=== PATIENT | female | born 1955 | race Caucasian/White ===

== ENCOUNTER 2018-10-22 11:55 | Emergency (ER) | payer OTHER ==
[2018-10-22] MEDS ORDERED: DIAZEPAM 5 MG TABLET ONE (12:34)
[2018-10-22] MEDS ORDERED: HYDROCODONE/APAP 5/325 MG TAB ONE (12:34)
[2018-10-22] MEDS ORDERED: ONDANSETRON 4 MG (ODT) TAB ONE (12:38)
--- NOTE | 2018-10-22 13:12 | RAD REPORT ---
EXAM DESCRIPTION: French Single View10/22/2018 1:07 pm CLINICAL HISTORY: Chest pain COMPARISON: none FINDINGS: The lungs appear clear of acute infiltrate. The heart is normal size IMPRESSION: No acute abnormalities displayed
--- NOTE | 2018-10-22 13:13 | RAD REPORT ---
EXAM DESCRIPTION: RAD - Shoulder Right 2 View - 10/22/2018 1:07 pm CLINICAL HISTORY: Right shoulder pain FINDINGS: No fracture or dislocation is seen. Mild osteoarthritis involves the AC joint mainly consisting of joint space narrowing and small osteop hytes.
--- NOTE | 2018-10-22 13:13 | RAD REPORT ---
EXAM DESCRIPTION: RAD - C Spine Ap/Lat - 10/22/2018 1:07 pm CLINICAL HISTORY: Neck pain FINDINGS: Mild posterior subluxation of C5 on C6 is present. Osteophytes and disc space narrowing ar e present. There is loss of normal lordosis at this level. No fracture or dislocation is seen.
--- NOTE | 2018-10-22 13:57 | ER ---
Nurse's Notes [facility] Name: Brissa Potetr Age: 63 yrs Sex: Female : 1955 Arrival Date: 10/22/2018 Time: 11:58 Bed 14 Private MD: out of town, doctor Diagnosis: Muscle spasm of back Presentation: 10/22 12:03 Presenting complaint: Patient states: yesterday morning i started having right scapula tw2 shoulder back pain and now i can hardly move it. Transition of care: patient was not received from another setting of care. Onset of symptoms was October 22, 2018. Risk Assessment: Do you want to hurt yourself or someone else? Patient reports no desire to harm self or others. Initial Sepsis Screen: Does the patient meet any 2 criteria? No. Patient's initial sepsis screen is negative. Does the patient have a suspected source of infection? No. Patient's initial sepsis screen is negative. Care prior to arrival: None. 12:03 Method Of Arrival: Ambulatory tw2 12:03 Acuity: JOSE R 4 tw2 Triage Assessment: 12:06 General: Appears in no apparent distress. well groomed, Behavior is calm, cooperative, tw2 appropriate for age. Pain: Complains of pain in my right scapula. Historical: - Allergies: 12:06 No Known Allergies; tw2 - Home Meds: 12:06 estrodol [Active]; tw2 - PSHx: 12:06 Cholecystectomy; prolapsed uterus, rectum, bladder; Hysterectomy; tw2 - Immunization history:: Adult Immunizations. - Social history:: Smoking status: . - Ebola Screening: : Patient denies travel to an Ebola-affected area in the 21 days before illness onset. Screenin:15 Abuse screen: Denies threats or abuse. Denies injuries from another. Nutritional bp screening: No deficits noted. Tuberculosis screening: No symptoms or risk factors identified. Fall Risk None identified. Assessment: 12:15 General: Appears in no apparent distress. uncomfortable, Behavior is cooperative, bp appropriate for age, anxious. Pain: Complains of pain in anterior aspect of right shoulder. Neuro: Level of Consciousness is awake, alert, obeys commands, Oriented to person, place, time, situation, Appropriate for age. Cardiovascular: No deficits noted. Respiratory: No deficits noted. GI: No signs and/or symptoms were reported involving the gastrointestinal system. : No signs and/or symptoms were reported regarding the genitourinary system. EENT: No deficits noted. Derm: No deficits noted. Musculoskeletal: Circulation, motion, and sensation intact. Range of motion: limited in right shoulder. 14:15 Reassessment: PT D/C HOME AMBULATORY, DX WITH MUSCLE SPASM. bp Vital Signs: 12:04 BP 139 / 73; Pulse 82; Resp 17; Temp 98.7(TE); Pulse Ox 100% on R/A; Weight 70.31 kg tw2 (R); Height 5 ft. 8 in. (172.72 cm); Pain 7/10; 14:15 BP 141 / 75; Pulse 81; Resp 16; Pulse Ox 99% ; bp 12:04 Body Mass Index 23.57 (70.31 kg, 172.72 cm) tw2 12:04 if i move its a 06/11 tw2 ED Course: 11:58 Patient arrived in ED. mr 11:58 out of town, doctor is Private Physician. mr 12:04 Triage completed. tw2 12:04 Arm band placed on. tw2 12:07 Larry Reinoso PA is PHCP. jmm 12:07 French Guadalupe MD is Attending Physician. jmm 12:08 Leroy Rashid, JUSTYNA is Primary Nurse. bp 12:15 Patient has correct armband on for positive identification. Bed in low position. Call bp light in reach. Side rails up X2. Adult w/ patient. 12:35 Patient moved to radiology via wheelchair. jb2 13:06 X-ray completed. Patient tolerated procedure well. Patient moved back from radiology. jb2 13:08 Shoulder Right (2 View) XRAY In Process Unspecified. EDMS 13:08 XRAY C Spine Ap/lat In Process Unspecified. EDMS 13:08 Chest Single View XRAY In Process Unspecified. EDMS 14:15 No provider procedures requiring assistance completed. Patient did not have IV access bp during this emergency room visit. Administered Medications: 12:25 Drug: Beverly 5 mg-325 mg 1 tabs Route: PO; jl7 14:16 Follow up: Response: Pain is decreased bp 12:26 Drug: Valium 5 mg Route: PO; jl7 14:17 Follow up: Response: Pain is decreased bp 12:28 Drug: Zofran 4 mg Route: PO; jl7 14:17 Follow up: Response: No adverse reaction; Nausea is decreased bp Outcome: 13:57 Discharge ordered by MD. ward 14:16 Discharged to home ambulatory, with family. bp 14:16 Condition: stable 14:16 Discharge instructions given to patient, Instructed on discharge instructions, follow up and referral plans. medication usage, Demonstrated understanding of instructions, follow-up care, medications, Prescriptions given X 2. 14:17 Patient left the ED. bp Signatures: Dispatcher [employer] EDMS Larry Reinoso PA PA jmm Rivera, Mary mr Bagley, Nathan jb2 Juli Brady RN RN tw2 Helen Valencia RN RN jl7 Leroy Rashid RN RN bp
--- NOTE | 2018-10-22 13:58 | EDPHYS ---
Physician Documentation [facility] Name: Brissa Potter Age: 63 yrs Sex: Female : 1955 Arrival Date: 10/22/2018 Time: 11:58 Bed 14 Private MD: out of town, doctor ED Physician French Guadalupe HPI: 10/22 12:18 This 63 yrs old Female presents to ER via Ambulatory with complaints of jmm Shoulder Pain. 12:18 The patient or guardian complains of pain, that is acute. Onset: The symptoms/episode jmm began/occurred acutely, yesterday. Associated signs and symptoms: Pertinent positives:. This is a 63 year old female that presents to the ED with complaints of right scapular pain beginning yesterday. pain is relieved with remaining still, worsened by movement of the right arm. patient denies chest pain or shortness of breath. . Historical: - Allergies: 12:06 No Known Allergies; tw2 - Home Meds: 12:06 estrodol [Active]; tw2 - PSHx: 12:06 Cholecystectomy; prolapsed uterus, rectum, bladder; Hysterectomy; tw2 - Immunization history:: Adult Immunizations. - Social history:: Smoking status: . - Ebola Screening: : Patient denies travel to an Ebola-affected area in the 21 days before illness onset. ROS: 12:18 Constitutional: Negative for fever, chills, and weight loss, Cardiovascular: Negative jmm for chest pain, palpitations, and edema, Respiratory: Negative for shortness of breath, cough, wheezing, and pleuritic chest pain. 12:18 Back: Positive for pain with movement. 12:18 MS/extremity: Positive for pain. 12:18 All other systems are negative. Exam: 12:18 Constitutional: This is a well developed, well nourished patient who is awake, alert, jmm and in no acute distress. Head/Face: atraumatic. Eyes: EOMI, no conjunctival erythema appreciated ENT: Moist Mucus Membranes Neck: Trachea midline, Supple Chest/axilla: Normal chest wall appearance and motion. Cardiovascular: Regular rate and rhythm. No edema appreciated Respiratory: Normal respirations, no respiratory distress appreciated 12:18 Musculoskeletal/extremity: pain is exacerbated on movement of the right arm, full radial pulse is appreciated, full auto travel counselor strength, compartments are soft, NVI. 12:18 Skin: Appearance: Color: normal in color. 12:18 Neuro: Orientation: is normal, Mentation: is normal, Memory: is normal. 12:18 Psych: Behavior/mood is pleasant, cooperative. Vital Signs: 12:04 BP 139 / 73; Pulse 82; Resp 17; Temp 98.7(TE); Pulse Ox 100% on R/A; Weight 70.31 kg tw2 (R); Height 5 ft. 8 in. (172.72 cm); Pain 7/10; 14:15 BP 141 / 75; Pulse 81; Resp 16; Pulse Ox 99% ; bp 12:04 Body Mass Index 23.57 (70.31 kg, 172.72 cm) tw2 12:04 if i move its a 06/11 tw2 MDM: 12:18 Patient medically screened. [facility] 13:55 Data reviewed: vital signs, nurses notes, lab test result(s), radiologic studies, plain [facility] films. Counseling: I had a detailed discussion with the patient and/or guardian regarding: the historical points, exam findings, and any diagnostic results supporting the discharge/admit diagnosis, radiology results, the need for outpatient follow up, to return to the emergency department if symptoms worsen or persist or if there are any questions or concerns that arise at home. ED course: Patient states that she feels much better. ROM has improved. Patient advised to follow up with orthopedics. Patient otherwise given strict return precautions. . 10/22 12:20 Order name: Shoulder Right (2 View) XRAY; Complete Time: 13:15 [facility] 10/22 12:20 Order name: Chest Single View XRAY; Complete Time: 13:15 [facility] 10/22 12:20 Order name: XRAY C Spine Ap/lat; Complete Time: 13:15 [facility] Administered Medications: 12:25 Drug: [place]field 5 mg-325 mg 1 tabs Route: PO; jl7 14:16 Follow up: Response: Pain is decreased bp 12:26 Drug: Valium 5 mg Route: PO; jl7 14:17 Follow up: Response: Pain is decreased bp 12:28 Drug: Zofran 4 mg Route: PO; jl7 14:17 Follow up: Response: No adverse reaction; Nausea is decreased bp Disposition: 18:49 Co-signature as Attending Physician, French Guadalupe MD Available for consultation at ps1 all times. . Disposition: 10/22/18 13:57 Discharged to Home. Impression: Muscle spasm of back. - Condition is Stable. - Discharge Instructions: Muscle Cramps and Spasms. - Prescriptions for Tylenol- Codeine #3 300-30 mg Oral Tablet - take 1 tablet by ORAL route every 6 hours As needed; 12 tablet. Valium 5 mg Oral Tablet - take 1 tablet by ORAL route every 8 hours As needed; 12 tablet. - Medication Reconciliation Form, Thank You Letter, Antibiotic Education, Prescription Opioid Use form. - Follow up: Private Physician; When: 2 - 3 days; Reason: Recheck today's complaints, Continuance of care, Re-evaluation by your physician. Signatures: Dispatcher [employer] EDMS Larry Reinoso PA PA jmm Wise, Tara, RN RN tw2 Helen Valencia RN RN jl7 Leroy Rashid RN RN bp French Guadalupe MD MD ps1 Corrections: (The following items were deleted from the chart) 14:17 13:57 10/22/2018 13:57 Discharged to Home. Impression: Muscle spasm of back. Condition bp is Stable. Forms are Medication Reconciliation Form, Thank You Letter, Antibiotic Education, Prescription Opioid Use. Follow up: Private Physician; When: 2 - 3 days; Reason: Recheck today's complaints, Continuance of care, Re-evaluation by your physician. sylvia
== END 2018-10-22 14:17 | disposition home or self-care (01) ==
LOC: ER 11:55
DX: M62.830 Muscle spasm of back (principal)
CPT/HCPCS: 71045; 72040; 99283